=== PATIENT | female | born 1935 | race Caucasian/White ===

== ENCOUNTER 2016-12-18 18:56 | Emergency (ER) | payer MEDICARE ==
[2016-12-18] MEDS ORDERED: ASPIRIN 81 MG TABLET, CHEWABLE PO ONE (19:09)
--- NOTE | 2016-12-18 19:09 | ER Document Report ---
ED Medical Screen (RME) - General Stated Complaint: HEART RATE PROBLEM Notes: Patient is an 81-year-old female presents emergency Department complaining of no high blood pressure and was heart palpitations. Patient has a diagnosis history of paroxysmal A. fib. Patient is unable tenderness will be control agents. She denies any currently any chest pain and shortness of breath any wheezing any difficulty breathing. Patient states that previously when she is having palpitations that she simply blood pressure was high so they didn't on home cuff. I have greeted and performed a rapid initial assessment of this patient. A comprehensive ED assessment and evaluation of the patient, analysis of test results and completion of the medical decision making process will be conducted by additional ED providers. TRAVEL OUTSIDE OF THE [place] IN LAST 30 DAYS: No - Related Data Allergies/Adverse Reactions: celecoxib [From Celebrex] Allergy (Severe, Verified 10/27/12 13:37) rash doxycycline [Doxycycline] Allergy (Severe, Verified 10/27/12 13:37) rash erythromycin base [Erythromycin Base] Allergy (Severe, Verified 10/27/12 13:37) rash,blisters Influenza Virus Vaccines [Influenza Virus Vaccine] Allergy (Severe, Verified 13:37) bronchitis,throat on fire oxaprozin [From Daypro] Allergy (Severe, Verified 10/27/12 13:37) rash Penicillins Allergy (Severe, Verified 10/27/12 13:37) blood poison Past Medical History - Past Medical History Cardiac Medical History: Reports: Hx Atrial Fibrillation, Hx Hypercholesterolemia, Hx Hypertension Denies: Hx Coronary Artery Disease, Hx Heart Attack Pulmonary Medical History: Reports: Hx Pneumonia Denies: Hx Asthma, Hx Bronchitis, Hx COPD, Hx Tuberculosis Neurological Medical History: Denies: Hx Cerebrovascular Accident - 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,Dr Jeffries repaired, Hx Seizures Endocrine Medical History: Reports: Hx Hypothyroidism GI Medical History: Reports: Hx Gastroesophageal Reflux Disease Musculoskeltal Medical History: Reports Hx Arthritis Traumatic Medical History: Denies: Hx Fractures Infectious Medical History: Past Surgical History: Denies: Hx Pacemaker - Immunizations Hx Diphtheria, Pertussis, Tetanus Vaccination: Yes Physical Exam - Vital signs Vitals: Temp Pulse Resp BP Pulse Ox 97.6 F 90 18 140/85 H 97 12/18/16 19:04 12/18/16 19:04 12/18/16 19:04 12/18/16 19:04 12/18/16 19:04 Course - Vital Signs Vital signs: Temp Pulse Resp BP Pulse Ox 97.6 F 90 18 140/85 H 97 12/18/16 19:04 12/18/16 19:04 12/18/16 19:04 12/18/16 19:04 12/18/16 19:04
--- NOTE | 2016-12-18 20:19 | ER Document Report ---
ED General - General Chief Complaint: Palpitations Stated Complaint: HEART RATE PROBLEM Notes: Patient is an 81-year-old female with past medical history of hypertension, paroxysmal atrial fibrillation who presents with palpitations that have since resolved. States that she was at a today, was quite upset and began to feel herself enter into a typical A. fib episode. States she frequently has these but they typically last 1-2 minutes. She describes them as being palpitations over the left side of her chest. She denied any associated chest pain, shortness of breath, nausea, vomiting or diaphoresis. States she became concerned when it did not resolve after approximately 15-20 minutes which prompted her to come to the emergency department. Nothing was noted to improve or worsen her symptoms. She has had similar episodes in the past. By the time she arrived to the emergency room she notes that her symptoms had completely resolved. At the time of my assessment she is asymptomatic. She has not talked to her primary care doctor or manager statistics regarding today's episode. TRAVEL OUTSIDE OF THE [place] IN LAST 30 DAYS: No - Related Data Allergies/Adverse Reactions: celecoxib [From Celebrex] Allergy (Severe, Verified 12/18/16 19:07) rash doxycycline [Doxycycline] Allergy (Severe, Verified 12/18/16 19:07) rash erythromycin base [Erythromycin Base] Allergy (Severe, Verified 12/18/16 19:07) rash,blisters Influenza Virus Vaccines [Influenza Virus Vaccine] Allergy (Severe, Verified 19:07) bronchitis,throat on fire oxaprozin [From Daypro] Allergy (Severe, Verified 12/18/16 19:07) rash Penicillins Allergy (Severe, Verified 12/18/16 19:07) blood poison Past Medical History - General Information source: Patient - Social History Smoking Status: Never Smoker Chew tobacco use (# tins/day): No Frequency of alcohol use: None Drug Abuse: None Lives with: Family Family History: Reviewed & Not Pertinent Patient has suicidal ideation: No Patient has homicidal ideation: No - Past Medical History Cardiac Medical History: Reports: Hx Atrial Fibrillation, Hx Hypercholesterolemia, Hx Hypertension Denies: Hx Coronary Artery Disease, Hx Heart Attack Pulmonary Medical History: Reports: Hx Pneumonia Denies: Hx Asthma, Hx Bronchitis, Hx COPD, Hx Tuberculosis Neurological Medical History: Denies: Hx Cerebrovascular Accident - 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,Dr Jeffries repaired, Hx Seizures Endocrine Medical History: Reports: Hx Hypothyroidism Renal/ Medical History: Denies: Hx Peritoneal Dialysis GI Medical History: Reports: Hx Gastroesophageal Reflux Disease Musculoskeltal Medical History: Reports Hx Arthritis Traumatic Medical History: Denies: Hx Fractures Infectious Medical History: Past Surgical History: Denies: Hx Pacemaker - Immunizations Hx Diphtheria, Pertussis, Tetanus Vaccination: Yes Hx Pneumococcal Vaccination: 10/03/07 Review of Systems - Review of Systems Notes: Constitutional: Negative for fever. HENT: Negative for sore throat. Eyes: Negative for visual changes. Cardiovascular: Negative for chest pain. Positive for palpitations Respiratory: Negative for shortness of breath. Gastrointestinal: Negative for abdominal pain, vomiting or diarrhea. Genitourinary: Negative for dysuria. Musculoskeletal: Negative for back pain. Skin: Negative for rash. Neurological: Negative for headaches, weakness or numbness. 10 point ROS negative except as marked above and in HPI. Physical Exam - Vital signs Vitals: Temp Pulse Resp BP Pulse Ox 97.6 F 90 18 140/85 H 97 12/18/16 19:04 12/18/16 19:04 12/18/16 19:04 12/18/16 19:04 12/18/16 19:04 Interpretation: Normal Notes: PHYSICAL EXAMINATION: GENERAL: Well-appearing, well-nourished and in no acute distress. HEAD: Atraumatic, normocephalic. EYES: Pupils equal round and reactive to light, extraocular movements intact, sclera anicteric, conjunctiva are normal. ENT: nares patent, oropharynx clear without exudates. Moist mucous membranes. NECK: Normal range of motion, supple without lymphadenopathy LUNGS: Breath sounds clear to auscultation bilaterally and equal. No wheezes rales or rhonchi. HEART: Regular rate and rhythm without murmurs ABDOMEN: Soft, nontender, normoactive bowel sounds. No guarding, no rebound. No masses appreciated. EXTREMITIES: Normal range of motion, no pitting or edema. No cyanosis. NEUROLOGICAL: No focal neurological deficits. Moves all extremities spontaneously and on command. PSYCH: Normal mood, normal affect. SKIN: Warm, Dry, normal turgor, no rashes or lesions noted. Course - Re-evaluation Re-evalutation: 12/18/16 20:14 Patient presents with palpitations but is in no acute distress. Vitals within normal limits at time of arrival. EKG unremarkable with a normal sinus rhythm. Patient has a history of paroxysmal atrial fibrillation and states that she has these types of episodes frequently but often does not have them lasting this long. Her symptoms have resolved at time of presentation. T-wave inversions present that were not present on an EKG from 4 years ago. Patient denies any chest pain, shortness of breath, or vomiting. At this time based on exam and history do not suspect ACS, acute pulmonary embolus, aortic dissection. I do not see an indication for laboratory assessment given patient' s clinical history of similar episodes in the past and it's complete spontaneous resolution which is consistent with paroxysmal atrial fibrillation. Patient encouraged to follow-up with their primary care physician as well as cardiology and a referral has been provided. At this time will discharge with return precautions and follow-up recommendations. Verbal discharge instructions given a the bedside and opportunity for questions given. Medication warnings reviewed. Patient is in agreement with this plan and has verbalized understanding of return precautions and the need for primary care follow-up in the next 24-72 hours. - Vital Signs Vital signs: Temp Pulse Resp BP Pulse Ox 97.9 F 81 18 140/89 H 96 12/18/16 20:47 12/18/16 20:47 12/18/16 20:47 12/18/16 20:47 12/18/16 20:47 - EKG Interpretation by Me Additional EKG results interpreted by me: 12/18/16 20:19 Normal sinus rhythm. Rate 77. No ST elevations or depressions. T-wave inversions in V4 through V6 which are new from prior. QTC 476. Discharge - Discharge Clinical Impression: Paroxysmal atrial fibrillation Condition: Good Disposition: HOME, SELF-CARE Additional Instructions: Please follow-up with your primary care doctor regarding today's visit. Return if you develop chest pain, shortness of breath, pass out, persistent vomiting, or any other symptoms that are worrisome to you. Referrals: LUIS DANIEL HAMILTON MD [Primary Care Provider] - Follow up tomorrow
--- NOTE | 2016-12-18 20:34 | EKG REPORT ---
SEVERITY:- ABNORMAL ECG - SINUS RHYTHM PROBABLE LEFT ATRIAL ABNORMALITY LEFT ANTERIOR FASCICULAR BLOCK LVH WITH SECONDARY REPOLARIZATION ABNORMALITY CANNOT EXCLUDE LATERAL WALL ISCHEMIA : Confirmed by: Mary Painting MD 18-Dec-2016 20:33:21
[2016-12-18 20:49] VITALS: BP 140/89
== END 2016-12-18 20:50 | disposition home or self-care (01) ==
LOC: ER 18:56
DX: I48.0 Paroxysmal atrial fibrillation (principal); I10 Essential (primary) hypertension; Z88.8 Allergy status to other drugs, medicaments and biological substances; Z88.1 Allergy status to other antibiotic agents; Z88.7 Allergy status to serum and vaccine; Z88.0 Allergy status to penicillin
CPT/HCPCS: 93005; 93010; 99285

== ENCOUNTER 2017-12-05 05:59 | Inpatient (IN) | payer MEDICARE ==
--- NOTE | 2017-12-02 11:48 | RADIOLOGY REPORT (SQ) ---
EXAM DESCRIPTION: CHEST PA/LATERAL COMPLETED DATE/TIME: 12/02/2017 11:38 am REASON FOR STUDY: PRE OP COMPARISON: December 2015 EXAM PARAMETERS: NUMBER OF VIEWS: two views TECHNIQUE: Digital Frontal and Lateral radiographic views of the chest acquired. RADIATION DOSE: NA LIMITATIONS: none FINDINGS: LUNGS AND PLEURA: No opacities, masses or pneumothorax. No pleural effusion. MEDIASTINUM AND HILAR STRUCTURES: No masses or contour abnormalities. HEART AND VASCULAR STRUCTURES: Cardiac silhouette remains at the upper limits of normal in size. Tor tuous thoracic aorta is again identified. BONES: No acute findings. HARDWARE: None in the chest. OTHER: No other significant finding. IMPRESSION: No significant interval change. No acute findings. Other findings as noted above TECHNICAL DOCUMENTATION: JOB ID: [id number] [employer]- All Rights Reserved Reading location - IP/workstation name: [email or web address]
[2017-12-02 12:26] LABS: APPEARANCE,URINE CLEAR; BILIRUBIN,URINE NEGATIVE (NEGATIVE); COLOR,URINE YELLOW; GLUCOSE, URINE NEGATIVE (NEGATIVE); KETONES,URINE NEGATIVE (NEGATIVE); LEUKOCYTE ESTERASE,URINE SMALL (NEGATIVE); NITRITE,URINE NEGATIVE (NEGATIVE); PROTEIN,URINE NEGATIVE (NEGATIVE); URINE SPECIFIC GRAVITY 1.008; UROBILINOGEN,URINE NEGATIVE mg/dL (<2.0)
[2017-12-02 12:40] LABS: HEMATOCRIT 43.4 % (36.0-47.0); HEMOGLOBIN 14.5 g/dL (12.0-15.5); MEAN CORPUSCULAR HEMOGLOBIN 29.4 pg (27.0-33.4); MEAN CORPUSCULAR HGB CONC 33.3 g/dL (32.0-36.0); MEAN CORPUSCULAR VOLUME 88 fl (80-97); PLATELET COUNT 165 10^3/uL (150-450); RED BLOOD COUNT 4.93 10^6/uL (3.72-5.28); RED CELL DISTRIBUTION WIDTH 14.1 % (11.5-14.0); WHITE BLOOD COUNT 5.5 10^3/uL (4.0-10.5)
[2017-12-02 12:57] LABS: ALANINE AMINOTRANSFERASE 34 U/L (9-52); ALBUMIN 4.4 g/dL (3.5-5.0); ALKALINE PHOSPHATASE 49 U/L (38-126); ANION GAP 11 (5-19); ASPARTATE AMINO TRANSFERASE 33 U/L (14-36); BILIRUBIN,DIRECT 0.2 mg/dL (0.0-0.4); BILIRUBIN,TOTAL 0.4 mg/dL (0.2-1.3); BLOOD UREA NITROGEN 16 mg/dL (7-20); CALCIUM 9.8 mg/dL (8.4-10.2); CARBON DIOXIDE 27 mmol/L (22-30); CHLORIDE 103 mmol/L (98-107); GLUCOSE 75 mg/dL (75-110); POTASSIUM 4.6 mmol/L (3.6-5.0); SODIUM 141.1 mmol/L (137-145); TOTAL PROTEIN 7.5 g/dL (6.3-8.2)
--- NOTE | 2017-12-02 14:34 | EKG REPORT ---
SEVERITY:- ABNORMAL ECG - SINUS RHYTHM LEFT ANTERIOR FASCICULAR BLOCK LVH WITH SECONDARY REPOLARIZATION ABNORMALITY : Confirmed by: Clive Melo MD 02-Dec-2017 14:34:19
[~2017-12-05 05:59] MED LIST: LACTATED RINGERS 1000 ML IV PRN; LIDOCAINE 0.5% INJ-PF (5 MG/ML) 50 ML SDV SUBCUT PRN
[2017-12-05] MEDS ORDERED: CEFAZOLIN 1 GM/D5W RTU 1 GM/50 ML RTUPB IV ONE (06:27)
[2017-12-05] MEDS ORDERED: DEXAMETHASONE SOD PHOSPHATE INJ 4 MG/1 ML VIAL ONE (08:14)
[2017-12-05] MEDS ORDERED: LIDOCAINE 2% INJ-PF (20 MG/ML) 10 ML AMPUL ONE (08:14)
[2017-12-05] MEDS ORDERED: FENTANYL CITRATE INJ/PF 100 MCG/2 ML AMPUL ONE (08:14)
[2017-12-05] MEDS ORDERED: ONDANSETRON HCL INJ/PF 4 MG/2 ML SDV ONE (08:14)
[2017-12-05] MEDS ORDERED: MIDAZOLAM 2 MG/2 ML INJ ONE (08:15)
[2017-12-05] MEDS ORDERED: PROPOFOL INJ 200 MG/20 ML VIAL IV ONE (08:15)
[2017-12-05] MEDS ORDERED: ACETAMINOPHEN 100 ML IV ONE (08:15)
[2017-12-05] MEDS ORDERED: MEPERIDINE HCL/PF INJ 25 MG/1 ML DISP.SYRIN IV PRN (09:35)
[2017-12-05] MEDS ORDERED: DIPHENHYDRAMINE HCL 50 MG/ML VIAL IV PRN (09:35)
[2017-12-05] MEDS ORDERED: FENTANYL CITRATE INJ/PF 100 MCG/2 ML AMPUL IV PRN ×3 (09:35)
[2017-12-05] MEDS ORDERED: MORPHINE SULFATE 10 MG/ML INJ IV PRN (09:35)
[2017-12-05] MEDS ORDERED: ONDANSETRON HCL INJ/PF 4 MG/2 ML SDV IV PRN (09:35)
[2017-12-05] MEDS ORDERED: OXYCODONE-ACETAMINOPHEN 5-325 MG TABLET PO PRN ×3 (09:35→11:47)
[2017-12-05] MEDS ORDERED: PROMETHAZINE HCL INJ 25 MG/1 ML VIAL IV PRN (09:35)
[2017-12-05] MEDS: FENTANYL CITRATE INJ/PF 100 MCG/2 ML AMPUL ONE ×2 (10:36→10:41)
--- NOTE | 2017-12-05 10:58 | OPERATIVE REPORT E ---
Operative Report NAME: CARRIE RIVERA : 1935 AGE: 82Y DATE OF SURGERY: 12/05/2017 ROOM: OR PREOPERATIVE DIAGNOSIS: Grade 3 uterine prolapse, cystocele, rectocele. POSTOPERATIVE DIAGNOSIS: Grade 3 uterine prolapse, cystocele, rectocele. OPERATION: TVT, anterior and posterior repair with a sacrospinous vaginal suspension. ESTIMATED BLOOD LOSS: Less than 200 mL. SURGEON: Bryce SERRANO M.D. ANESTHESIA: General. TISSUE REMOVED OR ALTERED: Uterus and a portion of vagina. PROCEDURE: The patient was placed in a dorsal lithotomy position, prepped and draped in the usual sterile. A speculum was placed and the cervix was out pass the introitus. The posterior cul-de-sac was entered with sharp dissection. Posterior parietal peritoneum sutured to the posterior cuff with 2-0 Vicryl. The left uterosacral was clamped, divided, sutured with 2-0, repeated on the right. The cervix was sharply circumscribed. The anterior peritoneum was entered with sharp dissection. Serial clamps were used uterus, each pedicle being clamped, divided and sutured with 2-0 Vicryl, continued to the level of the utero-ovarian ligament which were cross clamped and the uterus removed. The utero-ovarian ligaments were sutured with a free-tie of 2-0 Vicryl, followed by a suture tie of 2-0 Vicryl. The pedicles were inspected and hemostasis was noted. The cuff was then closed with interrupted [id number] sutures of 2-0 Vicryl. Anterior repair was then accomplished by grasping the vaginal mucosa approximately 2 cm below the urethra and with sharp dissection, divided in the midline to just above the vaginal cuff. The underlying vesicovaginal tissues were bluntly and sharply divided. The underlying vesicovaginal tissues were then plicated using multiple 3-0 Vicryl. Excess vaginal mucosa was removed. The vaginal defect was close with a running suture of 2-0 Vicryl. Hemostasis was noted. Posterior repair was accomplished by grasping the vaginal mucosa with remnants of the hymenal ring, dividing crosswise and then dividing in the middle just below the cuff. Underlying rectovaginal tissues were bluntly and sharply divided. An anchor of 0 Vicryl was placed in the right sacrospinous ligament and the other end was securely tied to the anterior portion of the vagina. Underlying vesicovaginal tissue was then plicated using multiple 3-0 Vicryl in the midline. Excess vaginal mucosa was removed and the defect was closed with a running suture of 2-0 Vicryl. Her urine remained clear throughout the procedure. A vaginal pack was placed and she was taken to the recovery room in good condition. DICTATING PHYSICIAN: Bryce SERRANO M.D. [id number] PHY#: [id number] ID: [id number] JOB#: [id number] ACCT: [id number] cc:Bryce SERRANO M.D. >
[2017-12-05] MEDS ORDERED: NALBUPHINE HCL INJ 10 MG/1 ML AMPULE IV PRN (11:48)
[2017-12-05] MEDS ORDERED: HYDROMORPHONE HCL 2 MG TABLET PO PRN (11:49)
[2017-12-05] MEDS ORDERED: NEOSTIGMINE METHYLSULFATE 10 MG/10 ML VIAL ONE (12:22)
[2017-12-05] MEDS ORDERED: GLYCOPYRROLATE INJ 0.4 MG/2 ML VIAL ONE (12:22)
[2017-12-05] MEDS ORDERED: VECURONIUM BROMIDE INJ 10 MG VIAL IV ONE (12:22)
[2017-12-05] MEDS: IBUPROFEN 800 MG TABLET PO SCH ×2 (12:35→18:47)
[2017-12-05] MEDS: DEXTROSE 5%-LACTATED RINGERS 1,000 ML IV PRN (12:36)
[2017-12-05] MEDS ORDERED: LABETALOL HCL 200 MG TABLET PO ONE (15:00)
[2017-12-05] MEDS ORDERED: (PENDING PHARMACY ID) (Omega-3/Dha/Epa/Fish Oil [Fish Oil 1,000 Mg Softgel] 1 EACH) PO SCH (18:00)
[2017-12-05] MEDS: DOCUSATE SODIUM 100 MG CAPSULE PO SCH (18:46)
[2017-12-05] MEDS: OMEGA-3 ACID ETHYL ESTERS 1 GM CAPSULE PO SCH (18:46)
[2017-12-05] MEDS: LISINOPRIL 10 MG TABLET PO SCH (21:16)
[2017-12-05] MEDS ORDERED: ATORVASTATIN CALCIUM 20 MG TABLET PO SCH (22:00)
[2017-12-06] MEDS: IBUPROFEN 800 MG TABLET PO SCH ×2 (00:06→05:16)
[2017-12-06] MEDS: DEXTROSE 5%-LACTATED RINGERS 1,000 ML IV PRN (05:18)
[2017-12-06] MEDS ORDERED: LANSOPRAZOLE 30 MG TAB.RAP.DR PO SCH (06:00)
[2017-12-06] MEDS ORDERED: LEVOTHYROXINE SODIUM 0.05 MG TABLET PO SCH (06:00)
--- NOTE | 2017-12-06 07:12 | PDOC PROGRESS REPORT ---
Subjective Progress Note for:: 12/06/17 Subjective:: pt has no complaints Reason For Visit: N81.4 UTEROVAGINAL PROLAPSE, UNSPECIFIED, N95.0 Physical Exam - Physical Exam Vital Signs: Temp Pulse Resp BP Pulse Ox 97.9 F 75 16 142/80 H 96 12/06/17 04:30 12/06/17 04:30 12/06/17 04:30 12/06/17 04:30 12/06/17 04:30 Intake & Output 12/05/17 12/06/17 12/07/17 06:59 06:59 06:59 Intake Total 3950 Output Total 4825 Balance -875 Weight 69.4 kg General appearance: PRESENT: no acute distress Respiratory exam: PRESENT: clear to auscultation loly Cardiovascular exam: PRESENT: RRR GI/Abdominal exam: PRESENT: soft Result Laboratory Results: 12/02/17 11:15 12/02/17 11:15 Impressions: Chest X-Ray 12/02/17 11:27 IMPRESSION: No significant interval change. No acute findings. 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
--- NOTE | 2017-12-06 07:22 | PDOC DISCHARGE SUMMARY ---
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 Is this a current diagnosis for this admission?: Yes - Additional Information Discharge Diet: Regular Discharge Activity: Balance Activity w/Rest, No Driving, Energy Conservation, No Lifting Over 10 Pounds, No Lifting/Push/Pulling, Pelvic Rest, Slowly Increase Activity, No tub bath, Walk Frequently Prescriptions: Hydromorphone HCl [Dilaudid 2 mg Tablet] 2 mg PO Q4HP PRN #20 tablet PRN Reason: Ibuprofen [Motrin 800 mg Tablet] 800 mg PO Q6 #90 tablet Home Medications: Atorvastatin Calcium [Lipitor 20 mg Tablet] 20 mg PO QHS 10/27/12 Diltiazem HCl 180 mg PO DAILY 10/27/12 Omeprazole [Prilosec 40 mg Capsule] 40 mg PO DAILY 10/27/12 Glucosamine/D3/Boswellia Mylene [Osteo Bi-Flex Caplet] 1 each PO DAILY 12/02/17 Aspirin [Aspirin 81 mg Chewable Tablet] 81 mg PO DAILY tab.chew 12/06/17 Atorvastatin Calcium [Lipitor 20 mg Tablet] 20 mg PO QHS tablet 12/06/17 Docusate Sodium [Colace 100 mg Capsule] 100 mg PO BID capsule 12/06/17 Hydromorphone HCl [Dilaudid 2 mg Tablet] 2 mg PO Q4HP PRN #20 tablet 12/06/17 Ibuprofen [Motrin 800 mg Tablet] 800 mg PO Q6 #90 tablet 12/06/17 Levothyroxine Sodium [Synthroid 0.05 mg Tablet] 0.05 mg PO Q6AM tablet Lisinopril [Prinivil 10 mg Tablet] 20 mg PO Q12 tablet 12/06/17 Multivitamin [Tab-A-Bernarda (Multiple Vitamin) Tablet] 1 tab PO DAILY tablet 12/06 [place]-3 Acid Ethyl Esters [Lovaza 1 gm Capsule] 1 gm PO BID capsule 12/06/17 Oxycodone HCl/Acetaminophen [Percocet 5-325 mg Tablet] 1 tab PO Q4HP PRN tablet 12/06/17 History of Present Illness History of Present Illness: CARRIE RIVERA is a 82 year old female Hospital Course Hospital Course: pt has TVH A&P repair with vaginal suspension unremarkable hospital course d/ c and f/u 1 week Physical Exam - Physical Exam Vital Signs: Temp Pulse Resp BP Pulse Ox 97.9 F 75 16 142/80 H 96 12/06/17 04:30 12/06/17 04:30 12/06/17 04:30 12/06/17 04:30 12/06/17 04:30 Intake & Output 12/05/17 12/06/17 12/07/17 06:59 06:59 06:59 Intake Total 3950 Output Total 4825 Balance -875 Weight 69.4 kg General appearance: PRESENT: no acute distress Respiratory exam: PRESENT: clear to auscultation loly Cardiovascular exam: PRESENT: RRR GI/Abdominal exam: PRESENT: soft Psychiatric exam: PRESENT: normal mood Result Laboratory Results: 12/02/17 11:15 12/02/17 11:15 Impressions: Chest X-Ray 12/02/17 11:27 IMPRESSION: No significant interval change. No acute findings. Other findings as noted above Plan Discharge Plan: d/c f/u 1 wk Time Spent: Less than 30 Minutes
[2017-12-06] MEDS: LISINOPRIL 10 MG TABLET PO SCH (09:07)
[2017-12-06] MEDS: OMEGA-3 ACID ETHYL ESTERS 1 GM CAPSULE PO SCH (09:08)
[2017-12-06] MEDS: DOCUSATE SODIUM 100 MG CAPSULE PO SCH (09:09)
[2017-12-06 09:42] VITALS: BP 191/97
[2017-12-06] MEDS ORDERED: MULTIVITAMIN TABLET PO SCH (10:00)
[2017-12-06] MEDS ORDERED: (PENDING PHARMACY ID) (Omeprazole [Prilosec 40 Mg Capsule] 40 MG) PO SCH (10:00)
[2017-12-06] MEDS ORDERED: ASPIRIN 81 MG TABLET, CHEWABLE PO SCH (10:00)
== END 2017-12-06 11:00 | disposition home or self-care (01) | DRG 743 ==
LOC: INOR 05:59 → 2S 11:51
PROVIDERS: ADMIT Obstetrics & Gynecology Gynecology; ATTEND Obstetrics & Gynecology Gynecology
PROC: 0USG7ZZ Reposition Vagina, Via Natural or Artificial Opening (ICD-10-PCS; 2017-12-05)
PROC: 0JQC3ZZ Repair Pelvic Region Subcutaneous Tissue and Fascia, Percutaneous Approach (ICD-10-PCS; 2017-12-05)
PROC: 0UT97ZZ Resection of Uterus, Via Natural or Artificial Opening (ICD-10-PCS; principal; 2017-12-05 08:15)
DX: N81.3 Complete uterovaginal prolapse (principal); Z79.82 Long term (current) use of aspirin
CPT/HCPCS: 36415; 71046; 80053; 81001; 85027; 86850; 86900; 86901; 88305; 93005; 93010; 944; J0131; J0690; J1100; J2250; J2405; J2704; J3010; J3490